=== PATIENT | male | born 1955 | race Two or more races ===

== ENCOUNTER 2017-05-19 14:40 | Inpatient (IN) | payer OTHER ==
[~2017-05-19] VITALS: Ht 185.4 cm; Wt 132.0 kg
[2017-05-19] MEDS ORDERED: LOSA100T6 PO (15:53)
[2017-05-19] MEDS ORDERED: OMEG-123 PO (15:53)
[2017-05-19] MEDS ORDERED: GLIM2TAB2 PO (15:53)
[2017-05-19] MEDS ORDERED: METF500T4 PO (15:53)
[2017-05-19] MEDS ORDERED: TAMS0.4C2 PO (15:53)
[2017-05-19 16:05] LABS: BLOOD UREA NITROGEN 10 mg/dL (7-18)
[2017-05-19] MEDS ORDERED: OXYcodone/APAP 5/325MG TABLET ONE ×2 (18:23→21:39)
[2017-05-19] MEDS ORDERED: LIDOCAINE GEL 2%, 5ML ONE (18:24)
[2017-05-19] MEDS ORDERED: OXYcodone/APAP 5/325MG TABLET PO ONE ×2 (18:30→22:00)
[2017-05-19] MEDS ORDERED: ONDANSETRON ODT 4 MG PO ONE (19:30)
[2017-05-19] MEDS ORDERED: SODIUM CHLORIDE FLUSH 10ML SYR IVF ONE (21:30)
[2017-05-19 21:48] LABS: HEMATOCRIT 49.4 % (39.2-51.8); HEMOGLOBIN 16.8 g/dL (13.7-18.0); WHITE BLOOD COUNT 8.8 x10^3/uL (3.4-10)
[2017-05-19] MEDS ORDERED: ACETAMINOPHEN 325 MG TABLET PO PRN (22:00)
[2017-05-19] MEDS ORDERED: DOCUSATE 100 MG CAPSULE PO PRN (22:00)
[2017-05-19] MEDS ORDERED: ONDANSETRON ODT 4 MG PO PRN (22:00)
[2017-05-19] MEDS ORDERED: TEMAZEPAM 15 MG CAPSULE PO PRN (22:00)
[2017-05-19] MEDS ORDERED: hydrALAzine 20 MG/ML, 1ML IVPush PRN (22:00)
[2017-05-19 22:15] VITALS: BP 139/72
[2017-05-19] MEDS: OXYcodone/APAP 5/325MG TABLET PO PRN (23:28)
[2017-05-19] MEDS ORDERED: PNEUMOCOCCAL 23 VACCINE IM-VACC ONE (23:45)
[2017-05-20 01:40] VITALS: BP 113/70
[2017-05-20] MEDS: OXYcodone/APAP 5/325MG TABLET PO PRN (04:31)
[2017-05-20] MEDS: INSULIN ASPART 100 UNITS/ML, PEN SQ-INSULIN SCH ×4 (06:13→21:50)
[2017-05-20] MEDS: GLIMEPIRIDE 1 MG TABLET PO SCH (07:21)
[2017-05-20] MEDS: LOSARTAN 50MG TABLET PO SCH (07:21)
[2017-05-20] MEDS: OMEGA-3/FISH OIL CAPSULE PO SCH (07:22)
[2017-05-20] MEDS: TAMSULOSIN 0.4 MG CAP.ER.24H PO SCH (07:22)
[2017-05-20 07:34] VITALS: BP 127/70
[2017-05-20 07:58] LABS: HEMATOCRIT 40.7 % (39.2-51.8); HEMOGLOBIN 14.1 g/dL (13.7-18.0); WHITE BLOOD COUNT 4.4 x10^3/uL (3.4-10)
[2017-05-20] MEDS ORDERED: morphine SULFATE 10 MG/ML, 1ML ONE (10:54)
[2017-05-20] MEDS: morphine SULFATE 10 MG/ML, 1ML IVPush PRN ×2 (10:56→19:40)
[2017-05-20 13:06] VITALS: BP 159/96
[2017-05-20] MEDS ORDERED: MIDAZOLAM 1 MG/ML, 2ML ONE (13:44)
[2017-05-20] MEDS ORDERED: FENTANYL PF 100 MCG/2ML ONE ×2 (13:44)
[2017-05-20] MEDS ORDERED: PROPOFOL 10 MG/ML, 20ML ONE (13:45)
[2017-05-20] MEDS ORDERED: CEFAZOLIN 1,000 MG ONE ×3 (13:46→14:15)
[2017-05-20] MEDS ORDERED: OXYcodone 5 MG/5 ML ORAL.SOL UDC PO PRN (14:00)
[2017-05-20] MEDS ORDERED: ONDANSETRON 2MG/ML, 2ML IVPush PRN (14:00)
[2017-05-20] MEDS ORDERED: hydrALAzine 20 MG/ML, 1ML IV PRN (14:00)
[2017-05-20] MEDS ORDERED: LABETALOL 5MG/ML, 20ML IV PRN (14:00)
[2017-05-20] MEDS ORDERED: MEPERIDINE/PF 25MG/0.5ML IVPush PRN (14:00)
[2017-05-20] MEDS ORDERED: PROMETHAZINE 25 MG/ML, 1ML IV PRN (14:00)
[2017-05-20] MEDS ORDERED: HYDROmorphone 1 MG/ML, 1ML IV PRN (14:00)
[2017-05-20] MEDS ORDERED: FENTANYL PF 100 MCG/2ML IV PRN (14:00)
[2017-05-20] MEDS ORDERED: OXYcodone 5 MG/5 ML ORAL.SOL UDC ONE (15:10)
[2017-05-20 20:00] VITALS: BP 130/65
[2017-05-21] MEDS ORDERED: FINA5TAB4 PO (01:38)
[2017-05-21 03:46] VITALS: BP 108/71
[2017-05-21] MEDS: INSULIN ASPART 100 UNITS/ML, PEN SQ-INSULIN SCH ×2 (06:21→11:26)
[2017-05-21] MEDS: OXYcodone/APAP 5/325MG TABLET PO PRN ×2 (06:23→11:46)
[2017-05-21 07:33] VITALS: BP 127/79
[2017-05-21] MEDS: GLIMEPIRIDE 1 MG TABLET PO SCH (08:47)
[2017-05-21] MEDS: OMEGA-3/FISH OIL CAPSULE PO SCH (08:47)
[2017-05-21] MEDS: LOSARTAN 50MG TABLET PO SCH (08:48)
[2017-05-21] MEDS: TAMSULOSIN 0.4 MG CAP.ER.24H PO SCH (08:48)
[2017-05-21] MEDS ORDERED: FINASTERIDE 5 MG TABLET PO SCH (09:00)
== END 2017-05-21 12:27 | disposition home or self-care (01) | DRG 670 ==
LOC: ED 16:02 → EDIP 21:34 → 4NOR 22:30
PROVIDERS: ADMIT Internal Medicine; ATTEND Internal Medicine
PROC: 0T9B70Z Drainage of Bladder with Drainage Device, Via Natural or Artificial Opening (ICD-10-PCS; 2017-05-19)
PROC: 0TCB8ZZ Extirpation of Matter from Bladder, Via Natural or Artificial Opening Endoscopic (ICD-10-PCS; 2017-05-20)
PROC: 0T5B8ZZ Destruction of Bladder, Via Natural or Artificial Opening Endoscopic (ICD-10-PCS; principal; 2017-05-20 14:00)
DX: R31.0 Gross hematuria (principal); E11.65 Type 2 diabetes mellitus with hyperglycemia; I10 Essential (primary) hypertension; I86.2 Pelvic varices; I16.0 Hypertensive urgency; R33.9 Retention of urine, unspecified
CPT/HCPCS: 36415; 51700; 74000; 76000; 80048; 81001; 82962; 85025; 90732; J0690; J1815; J2250; J2704; J3010; J2270

== ENCOUNTER → 2018-10-19 | Outpatient (CLI) | payer MEDICARE ==
[~2018-10-19] MED LIST: FINA5TAB4 PO; GLIM2TAB2 PO; LOSA100T14 PO; METF500T17 PO; OMEG-123 PO; TAMS0.4C2 PO
== END | disposition home or self-care (01) ==
LOC: CFH 07:06
DX: N28.1 Cyst of kidney, acquired (principal); K76.6 Portal hypertension; K74.60 Unspecified cirrhosis of liver; R16.1 Splenomegaly, not elsewhere classified
CPT/HCPCS: 76700